=== PATIENT | female | born 1950 | race Caucasian/White ===

== ENCOUNTER 2022-08-02 18:41 | Inpatient (IN) | payer MEDICARE, MEDICAID ==
[~2022-08-02] VITALS: Ht 167.6 cm; Wt 86.8 kg
[2022-08-02] VITALS (44 sets, daily range): BP systolic 74–189; BP diastolic 45–118
[~2022-08-02 18:41] MED LIST: AMARYL1 MG PO; ATIVAN1 MG PO; DESYREL50 MG PO; HYDROCO/APAP TAB 10-; LORAZEPAM0.5 MG PO; LOSARTAN/HCT TAB 100; METFORMIN HCL500 M1 PO; MIRTAZAPINE15 MG PO; MIRTAZAPINE30 MG PO; MONTELUKAST SOD10 MG PO; MORPHINE SUL15 M2 PO; MORPHINE SUL30 M3 PO; OMEPRAZOLE; OXYCOD/APAP TAB 10-; OXYCOD/APAP1 TA4 PO; SERTRALINE HCL50 MG PO; SIMVASTATIN20 MG PO; TIZANIDINE HCL4 M1 PO; TIZANIDINE HCL4 MG PO
--- NOTE | 2022-08-02 18:41 | NUR ---
PT ARRIVE TO ER VIA EMS. PT PLACED IN RM 6. PROVIDER NOTIFIED.
[2022-08-02 19:10] LABS: BASO% 0.4 % (0-3); HEMATOCRIT 33.9 % (37.0-47.0); IMMATURE GRANULOCYTES 0.4 % (0.0-5.0); MEAN CELL VOLUME 90.6 fL CALC (80.0-100.0); MEAN CORPUSCULAR HGB 29.4 pG CALC (26.0-32.0); MEAN CORPUSCULAR HGB CONC 32.4 g/dL CAL (32.0-36.0); MONO% 14.8 % (2-13); NEUT# 1.16 thou/uL (2.00-7.15); NEUT% 46.4 % (42-76); RED BLOOD COUNT 3.74 mill/uL (4.20-5.60); RED CELL DISTRI WIDTH 12.2 % (11.5-15.5)
[2022-08-02 19:19] LABS: ALKALINE PHOSPHATASE 79 u/l (38-126); BILIRUBIN, TOTAL 0.2 mg/dL (0.02-1.3); BUN 23 mg/dL (8-23); BUN/CREATININE RATIO 29 (12-20 (CALC)); CARBON DIOXIDE 26 mmol/l (22-30); CHLORIDE 93 mmol/l (95-108); CREATININE 0.8 mg/dL (0.5-1.0); GFR FOR AFR.AMER. > 60 ML/MIN (>=60 (CALC)); GFR OTHER RACES > 60 ML/MIN (>=60 (CALC)); POTASSIUM 3.7 mmol/l (3.5-5.1)
[2022-08-02 19:30] LABS: ANION GAP 15 (6-22 (CALC)); SGOT/AST 33 u/l (9-36); SODIUM 130 mmol/l (137-146)
--- NOTE | 2022-08-02 21:15 | NUR ---
PT UP TO THE BEDSIDE COMMODE UNASSISTED AND SAMPLE SENT TO THE LAB
[2022-08-02 22:20] LABS: URINE BILIRUBIN - DIPSTICK NEGATIVE (NEGATIVE); URINE BLOOD DIPSTICK TRACE-LYSED (NEGATIVE); URINE COLOR YELLOW; URINE GLUCOSE - DIPSTICK NEGATIVE (NEGATIVE); URINE KETONE NEGATIVE (NEGATIVE); URINE LEUK ESTERASE NEGATIVE (NEGATIVE); URINE PROTEIN - DIPSTICK TRACE mg/dL (NEG-TRACE); URINE SPECIFIC GRAVITY 1.015; URINE UROBILINOGEN - DIPSTICK 0.2 E.U./dL (0.2)
[2022-08-02 22:24] LABS: URINE NITRITE - DIPSTICK NEGATIVE (Negative)
[2022-08-02] MEDS ORDERED: OXYCODONE20 M1 PO (22:30)
[2022-08-02] MEDS ORDERED: ISOSORB MONO20 MG PO (22:32)
--- NOTE | 2022-08-02 22:35 | NUR ---
REPORT TO RN. TRANSFERRED TO ROOM 271 BY STRETCHER.PT ALERT AND OX4
[2022-08-03] VITALS (7 sets, daily range): BP systolic 142–172; BP diastolic 45–97
--- NOTE | 2022-08-03 00:50 | NUR ---
RECEIVED REPORT FROM ED NURSE HORTENSIA, PATIENT TRANSPORTED VA BED, HOOKE ON O2 @ 2LPM, PATIENT O2 DEPENDENT AT HOME, GEN BODY ACHES. PATIENT STATED SEEING PAIN MANAGEMENT, EMS SITE NOTED ON LAC PATENT FLUSHES WELL, HOOKED ON NS @ 8O CC/HR, ON TELEMETRY, ADMISSION ASSESSMENT COMPLETED, PATIENT ORIENTED TO ROOM AND CALL LIGHT SYSTEM.
--- NOTE | 2022-08-03 04:15 | NUR ---
FLORESITA RESTING IN BED, WITH HEAD ELEVATED, REMAINS ON O2 @ 2LPM VIA NC, STILL ON DROPLET ISOLATION CALL LIGHT IN REACH.
[2022-08-03 06:02] LABS: ALBUMIN 3.6 g/dL (3.2-5.0); ALKALINE PHOSPHATASE 63 u/l (38-126); ANION GAP 10 (6-22 (CALC)); BUN 16 mg/dL (8-23); BUN/CREATININE RATIO 25 (12-20 (CALC)); CARBON DIOXIDE 25 mmol/l (22-30); CHLORIDE 102 mmol/l (95-108); CREATININE 0.6 mg/dL (0.5-1.0); GFR FOR AFR.AMER. > 60 ML/MIN (>=60 (CALC)); GFR OTHER RACES > 60 ML/MIN (>=60 (CALC)); SGOT/AST 29 u/l (9-36); SODIUM 132 mmol/l (137-146); TOTAL PROTEIN 6.5 g/dL (6.3-8.2)
[2022-08-03 06:08] LABS: HEMATOCRIT 31.4 % (37.0-47.0); HEMOGLOBIN 10.4 g/dl (12.0-16.0); LYMPH% 36.6 % (15-41); MEAN CORPUSCULAR HGB 29.8 pG CALC (26.0-32.0); MEAN CORPUSCULAR HGB CONC 33.1 g/dL CAL (32.0-36.0); MONO% 6.1 % (2-13); NEUT# 0.94 thou/uL (2.00-7.15); NEUT% 57.3 % (42-76); RED BLOOD COUNT 3.49 mill/uL (4.20-5.60)
--- NOTE | 2022-08-03 06:23 | NUR ---
RECEIVED CRITICAL WBC FROM LAB, CLIENT ENGAGEMENT MANAGER NOTIFIED.
--- NOTE | 2022-08-03 07:15 | NUR ---
SHIFT CHANGE REPORT, PT AWAKE ALERT AND ORIENTED SITTING UP IN BED, C/O GENERALISED AND REQUESTING PAIN MEDS WHICH WAS GIVEN, IVF 0.9 NS INFUSING @ 20ML/HR TO SITE IN [facility], TELE MONITOR IN PLACE, CALL TORRES IN REACH AND BED LOCKED IN LOWEST POSITION.
--- NOTE | 2022-08-03 11:36 | NUR ---
PT REPORTED SHE HAS NOT HAD A BM IN 1 WEEK, MEDICAL TEAM NOTIFIED AND WROTE ORDERS, MIRALAX GIVEN, WILL CONTINUE TO MONITOR.
[2022-08-03] MEDS ORDERED: METFORMIN HCL500 M1 PO (14:45)
[2022-08-03] MEDS ORDERED: AMARYL1 MG PO (14:50)
[2022-08-03] MEDS ORDERED: LEVOTHYROXIN25 MC1 PO (14:52)
[2022-08-03] MEDS ORDERED: REMERON15 MG PO (14:53)
[2022-08-03] MEDS ORDERED: ROPINIROLE1 MG PO (14:54)
[2022-08-03] MEDS ORDERED: ATORVASTATIN CA10 MG PO (14:55)
[2022-08-03] MEDS ORDERED: OMEPRAZOLE DR40 MG PO (14:56)
[2022-08-03] MEDS ORDERED: ISOSORBIDE MONO60 MG PO (14:59)
[2022-08-03] MEDS ORDERED: VITAMIN D-32000 UNI1 PO (15:02)
[2022-08-03] MEDS ORDERED: HYZAAR1 TAB PO (15:04)
[2022-08-03] MEDS ORDERED: NITROSTAT0.4 MG SL (15:11)
[2022-08-03] MEDS ORDERED: VITAMIN D1.25 MG PO (15:15)
--- NOTE | 2022-08-03 16:00 | NUR ---
SITTING UP IN BED ALL DAY, PLAYING CARD GAME ON PHONE AT THIS TIME, NO NEW COMPLAINS. PHARMACY CONSULTED TO CLARIFY MEDICATIONS PT HAD QUESTIONS ABOUT ORDERED MEDS, ORDERS HAVE BEEN CLARIFIED.
--- NOTE | 2022-08-03 19:45 | NUR ---
PATIENT SITTING UP IN BED. ALERT AND ABLE TO MAKE NEEDS KNOWN. COMPLAINED OF DINNER TRAY NOT COMING FAST ENOUGH. FRESH TRAY WAS PROVIDED BY STAFF. ASSESSMENT COMPLETE. DENIES PAIN. NO DISTRESS NOTED. O2 AT 2L VIA NC. PATIENT APPEARS TO TAKE OFF OXYGEN AT TIMES. LUNG SOUNDS WITH EXPIRATORY WHEEZES ON AUSCULTATION. BED REMAINS IN LOW POSITION. CALL TORRES IN REACH. REMAINS ON DROPLET ISOLATION FOR FLU AND REVERSE ISOLATION FOR LOW WBC.
[2022-08-04] VITALS (7 sets, daily range): BP systolic 115–170; BP diastolic 47–88
--- NOTE | 2022-08-04 00:39 | NUR ---
PATIENT REMAINS RESTING IN BED. NO COMPLAINTS VOICED AT THIS TIME.
--- NOTE | 2022-08-04 04:28 | NUR ---
PATIENT RESTING IN BED ON HER RIGHT SIDE. NO DISTRESS NOTED. NO COMPLAINTS OF PAIN. OXYGEN REMAINS VIA NC AT 2L. DENIES ANY PAIN AT THIS TIME. BED REMAINS IN LOW POSITION. CALL TORRES IN REACH.
[2022-08-04 06:05] LABS: BASO% 0.3 % (0-3); HEMATOCRIT 33.2 % (37.0-47.0); HEMOGLOBIN 10.9 g/dl (12.0-16.0); IMMATURE GRANULOCYTES 0.3 % (0.0-5.0); MEAN CELL VOLUME 90.7 fL CALC (80.0-100.0); MEAN CORPUSCULAR HGB 29.8 pG CALC (26.0-32.0); MEAN CORPUSCULAR HGB CONC 32.8 g/dL CAL (32.0-36.0); MONO% 11.1 % (2-13); NEUT# 1.73 thou/uL (2.00-7.15); RED BLOOD COUNT 3.66 mill/uL (4.20-5.60); RED CELL DISTRI WIDTH 12.2 % (11.5-15.5)
[2022-08-04 06:24] LABS: ALBUMIN 3.8 g/dL (3.2-5.0); ALKALINE PHOSPHATASE 64 u/l (38-126); ANION GAP 12 (6-22 (CALC)); BUN 14 mg/dL (8-23); BUN/CREATININE RATIO 26 (12-20 (CALC)); CARBON DIOXIDE 26 mmol/l (22-30); CHLORIDE 102 mmol/l (95-108); CREATININE 0.6 mg/dL (0.5-1.0); GFR FOR AFR.AMER. > 60 ML/MIN (>=60 (CALC)); GFR OTHER RACES > 60 ML/MIN (>=60 (CALC)); MAGNESIUM 1.8 mg/dL (1.6-2.3); POTASSIUM 4.2 mmol/l (3.5-5.1); SGOT/AST 45 u/l (9-36); SODIUM 136 mmol/l (137-146); TOTAL PROTEIN 6.6 g/dL (6.3-8.2)
[2022-08-04 06:30] LABS: LYMPH% 40.3 % (15-41)
--- NOTE | 2022-08-04 07:02 | NUR ---
SHIFT CHANGE REPORT, PT AWAKE, ALERT AND ORIENTED RESTING IN BED, C/O BEING COLD AT THIS TIME AND REQUEST TO HAVE DOOR OPEN TO RELIEVE COLD IN ROOM, IVF 0.9 NS INFUSING @ 10ML/HR TO SITE IN [facility], TELE MONITOR IN PLACE, CALL TORRES IN REACH AND BED LOCKED IN LOWEST POSITION.
--- NOTE | 2022-08-04 08:22 | NUR ---
NEB TX OFFERED. PT DECLINES. O2 SAT ON 2L IS 98%.
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
--- NOTE | 2022-08-04 12:02 | NUR ---
SITTING UP IN BED AT THIS TIME, C/O ANXIETY, LORAZAPAM GIVEN. STATES SHE DOES NOT WANT HER LUNCH MEAL IF SHE DOES NOT HAVE BOTH TEA AND COFFEE WITH IT, NURSE WILL INVESTIGATE AND ADDRESS CONCERNS.
--- NOTE | 2022-08-04 20:00 | NUR ---
RECEIVED REPORT FROM NURSE HOLT, PATIENT RESTING IN BED TALKING ON THE PHONE, HOOKED ON O2 @ 2LPM VIA NC, PATIENT ALERT ORIENTED C/O GEN BODY PAIN, HAS EMS SITE ON LAC NS @ 10CC/HR INFUSING WELL, HOOKED ON TELEMETRY, PATIENT NOTED WHEEZING ON BILAT LUNG LE, ACTIVE BOWEL SOUNDS LBM 4/6, CALL LIGHT IN REACH.
--- NOTE | 2022-08-04 22:30 | NUR ---
ems site removed new iv inserted g 22 on left hand patent flushes well.
[2022-08-05] VITALS (7 sets, daily range): BP systolic 93–128; BP diastolic 56–72
--- NOTE | 2022-08-05 | NUR ---
PATIENT AWAKE, C/O GEN BODY PAIN WILL MEDICATE, PATIENT REMAINS ON 02 2 2LPM,BREATHING SHALLOW, STILL WITH EXETIONAL DYSPNEA, CALL LIGHT IN REACH.
--- NOTE | 2022-08-05 03:45 | NUR ---
PATIENT RESTING IN BED, BREATHING SHALLOW, REMAINS ON 2LPMMVIA NC, CALL LIGHT IN REACH.
[2022-08-05 05:46] LABS: BASO% 0.3 % (0-3); IMMATURE GRANULOCYTES 0.3 % (0.0-5.0); LYMPH% 22.2 % (15-41); MEAN CELL VOLUME 91.4 fL CALC (80.0-100.0); MEAN CORPUSCULAR HGB 29.6 pG CALC (26.0-32.0); MEAN CORPUSCULAR HGB CONC 32.4 g/dL CAL (32.0-36.0); NEUT# 4.91 thou/uL (2.00-7.15); NEUT% 70.2 % (42-76); RED BLOOD COUNT 3.72 mill/uL (4.20-5.60); RED CELL DISTRI WIDTH 12.4 % (11.5-15.5)
[2022-08-05 06:12] LABS: ALBUMIN 3.5 g/dL (3.2-5.0); ALKALINE PHOSPHATASE 69 u/l (38-126); ANION GAP 13 (6-22 (CALC)); BUN 20 mg/dL (8-23); BUN/CREATININE RATIO 25 (12-20 (CALC)); CARBON DIOXIDE 22 mmol/l (22-30); CHLORIDE 102 mmol/l (95-108); CREATININE 0.8 mg/dL (0.5-1.0); GFR FOR AFR.AMER. > 60 ML/MIN (>=60 (CALC)); GFR OTHER RACES > 60 ML/MIN (>=60 (CALC)); MAGNESIUM 1.6 mg/dL (1.6-2.3); POTASSIUM 3.9 mmol/l (3.5-5.1); SODIUM 132 mmol/l (137-146); TOTAL PROTEIN 6.1 g/dL (6.3-8.2)
[2022-08-05 06:14] LABS: BILIRUBIN, TOTAL 0.3 mg/dL (0.02-1.3); SGOT/AST 99 u/l (9-36)
--- NOTE | 2022-08-05 07:25 | NUR ---
RECEIVED REPORT FROM PM RN. PT RESTING IN BED, VSS, NO NEEDS AT THIS TIME. ALL SAFETY MEASURES IN PLACE.
--- NOTE | 2022-08-05 20:00 | NUR ---
RECEIVED REPORT FROM DAY SHIFT NURSE. PT SITTING ON BED HIGH FOWLERS; A &O X3. ASSESSMENT COMPLETED. O2 @ 2L VIA NASAL CANNULA IN PLACE. TELEMETRY IN PLACE. IV SITE FLUSHED: #22G LEFT HAND, HEALTHY AND PATENT. SAFETY PRECAUTIONS IN LACE WITH CALL LIGHT IN REACH.
--- NOTE | 2022-08-05 22:30 | NUR ---
PT C/O GENERALIZED PAIN, LEVEL 10/10,\; ADMINISTERED PAIN MED PER EMAR. SAFETY PRECAUTIONS IN PLACE WITH CALL LIGHT IN REACH.
[2022-08-06] VITALS (8 sets, daily range): BP systolic 85–129; BP diastolic 39–74
--- NOTE | 2022-08-06 | NUR ---
PT RESTING ON BED WITH EYES CLOSED; SUPINE POSITION. O2 @ 2L VIA NASAL CANNULA IN PLACE. NO DISTRESS OR PAIN NOTED. SAFETY PRECAUTIONS IN PLACE WITH CALL LIGHT IN REACH.
--- NOTE | 2022-08-06 04:30 | NUR ---
RECEIVED CALL FROM ER; PT HR IS IN THE 140'S. DR KLINE NOTIFIED OF SAME; ORDERED LOPRESSOR IV, WILL ADMINISTER SOON PHARMACY PROFILES MED. PT WAS RESTING ON BED, HIGH FOWLERS POSITION. IV SITE INFUSING FLUIDS PER ORDER. O2 @ 2L VIA NASAL CANNULA IN PLACE. SAFETY PRECAUTIONS IN PLACE WITH CALL LIGHT IN REACH.
[2022-08-06 05:47] LABS: ALBUMIN 3.8 g/dL (3.2-5.0); ALKALINE PHOSPHATASE 65 u/l (38-126); ANION GAP 10 (6-22 (CALC)); BILIRUBIN, TOTAL 0.4 mg/dL (0.02-1.3); BUN 22 mg/dL (8-23); BUN/CREATININE RATIO 29 (12-20 (CALC)); CARBON DIOXIDE 23 mmol/l (22-30); CHLORIDE 101 mmol/l (95-108); CREATININE 0.8 mg/dL (0.5-1.0); GFR FOR AFR.AMER. > 60 ML/MIN (>=60 (CALC)); GFR OTHER RACES > 60 ML/MIN (>=60 (CALC)); MAGNESIUM 1.7 mg/dL (1.6-2.3); POTASSIUM 3.9 mmol/l (3.5-5.1); SGOT/AST 104 u/l (9-36); SODIUM 130 mmol/l (137-146); TOTAL PROTEIN 6.7 g/dL (6.3-8.2)
[2022-08-06 06:02] LABS: HEMATOCRIT 34.5 % (37.0-47.0); HEMOGLOBIN 11.3 g/dl (12.0-16.0); MEAN CORPUSCULAR HGB 29.8 pG CALC (26.0-32.0); MEAN CORPUSCULAR HGB CONC 32.8 g/dL CAL (32.0-36.0); RED BLOOD COUNT 3.79 mill/uL (4.20-5.60); RED CELL DISTRI WIDTH 12.5 % (11.5-15.5)
--- NOTE | 2022-08-06 08:15 | NUR ---
0740 - PT PRESENTS SYMPTOMS OF SEPSIS. BP 94/39, HR 138, WBC 14.2 PHYSICIAN NOTIFIED, ORDERED 500 ML BOLUS, BLOOD CULTURES, URINE CULTURES, LACTIC ACID. 0807 - TELEMETRY REPORTS PATIENT IN AFIB. PHYSICIAN ORDERED 150 ML AMIODORONE BOLUS. EKG ORDERED.
--- NOTE | 2022-08-06 08:53 | NUR ---
0850 - PT DID NOT CONVERT TO NSR WITH AMIO BOLUS. INFORMED. PT REMAINS AFIB HR 136
--- NOTE | 2022-08-06 11:16 | NUR ---
TERRY FROM ER CALLED AEROMED SPOKE TO DISPATCH STATED THEY WILL TOUCHDOWN WITH ETA OF 20 MINUTES.
--- NOTE | 2022-08-06 11:47 | NUR ---
0940 - CALLED RAPID RESPONSE FOR PT DUE TO HEART RATE/RHYTHM AFIB WITH RVR AND TROPONIN OF 12. ADVISED AIR TRANSFER TO [place]. AMIO 150 BOLUS GIVEN AND CARDIZEM DRIP STARTED AT 10. PT HR MAITAINED IN AFIB WITH RVR. SECOND TROPONIN CAME BACK 11.6. [facility] ADVISED PT WOULD BE FLOWN IN AND GO STRAIGHT TO PATIENT SAFETY OFFICER. PT EDUCATED ON PROCESS AND COMING TRANSFER, AGREED TO SAME. FAMILY [facility]ERS CONTACTED PER PT WISHES. 1137 - PATIENT LOADED ONTO FLIGHT STRETCHER. REPORT GIVEN AND PATIENT SAFETY OFFICER AT [facility] CALLED. END OF MY CARE.
--- NOTE | 2022-08-06 12:04 | NUR ---
PRELIMINAR BC SHOWS GRAM (+) COCCI IN 1/[address] RESULTS REPORT[address] KLINE. NO NEW ORDERS PATIENT IS TO BE TRANSFERRED FOR HIGHER LEVEL OF CARE.
--- NOTE | 2022-08-07 12:36 | NUR ---
BLOOD CULTURE GROWING STAPH HOMINIS. C&S RESULTS FAXED TO [facility] NURSE JAQUI Tolbert @ [phone].
== END 2022-08-06 11:46 | disposition short-term general hospital (02) | DRG 193 ==
LOC: ED 18:41 → ED-I 20:49 → ED 21:03 → MS2 21:04
PROVIDERS: Family Medicine; Internal Medicine; Nurse Practitioner Family; ADMIT Internal Medicine; ATTEND Internal Medicine
DX: J10.1 Influenza due to other identified influenza virus with other respiratory manifestations (principal); I21.4 Non-ST elevation (NSTEMI) myocardial infarction; R57.0 Cardiogenic shock; J96.01 Acute respiratory failure with hypoxia; J44.1 Chronic obstructive pulmonary disease with (acute) exacerbation; I48.91 Unspecified atrial fibrillation; E11.9 Type 2 diabetes mellitus without complications; I25.10 Atherosclerotic heart disease of native coronary artery without angina pectoris; I10 Essential (primary) hypertension; M19.90 Unspecified osteoarthritis, unspecified site; Z79.84 Long term (current) use of oral hypoglycemic drugs; Z79.891 Long term (current) use of opiate analgesic; Z99.81 Dependence on supplemental oxygen
CPT/HCPCS: J0282; J1160; J1650

== ENCOUNTER 2022-11-13 13:03 | Emergency (ER) | payer MEDICARE, MEDICAID ==
[~2022-11-13] VITALS: Ht 167.6 cm; Wt 108.9 kg
[2022-11-13] VITALS (9 sets, daily range): BP systolic 135–171; BP diastolic 50–68
[~2022-11-13 13:03] MED LIST changes: +ATORVASTATIN CA10 MG PO; +HYZAAR1 TAB PO; +ISOSORB MONO20 MG PO; +ISOSORBIDE MONO60 MG PO; +LEVOTHYROXIN25 MC1 PO; +NITROSTAT0.4 MG SL; +OMEPRAZOLE DR40 MG PO; +OXYCODONE20 M1 PO; +REMERON15 MG PO; +ROPINIROLE1 MG PO; +VITAMIN D-32000 UNI1 PO; +VITAMIN D1.25 MG PO
[2022-11-13 14:43] LABS: URINE BILIRUBIN - DIPSTICK NEGATIVE (NEGATIVE); URINE BLOOD DIPSTICK NEGATIVE (NEGATIVE); URINE COLOR YELLOW; URINE GLUCOSE - DIPSTICK >=1000 mg/dL (NEGATIVE); URINE KETONE NEGATIVE (NEGATIVE); URINE LEUK ESTERASE NEGATIVE (NEGATIVE); URINE PH 6.5 (4.5-8.0); URINE PROTEIN - DIPSTICK NEGATIVE (NEG-TRACE); URINE SPECIFIC GRAVITY 1.015; URINE UROBILINOGEN - DIPSTICK 0.2 E.U./dL (0.2)
[2022-11-13 14:53] LABS: URINE NITRITE - DIPSTICK NEGATIVE (Negative)
[2022-11-13 17:23] LABS: BASO% 0.4 % (0-3); EOS% 0.9 % (0-8); HEMATOCRIT 39.2 % (37.0-47.0); HEMOGLOBIN 12.3 g/dl (12.0-16.0); IMMATURE GRANULOCYTES 0.2 % (0.0-5.0); LYMPH% 29.6 % (15-41); MEAN CELL VOLUME 91.6 fL CALC (80.0-100.0); MEAN CORPUSCULAR HGB 28.7 pG CALC (26.0-32.0); MEAN CORPUSCULAR HGB CONC 31.4 g/dL CAL (32.0-36.0); MONO% 6.1 % (2-13); NEUT# 6.65 thou/uL (2.00-7.15); NEUT% 62.8 % (42-76); RED BLOOD COUNT 4.28 mill/uL (4.20-5.60); RED CELL DISTRI WIDTH 12.1 % (11.5-15.5)
[2022-11-13 17:42] LABS: ALBUMIN 4.4 g/dL (3.2-5.0); ALKALINE PHOSPHATASE 119 u/l (38-126); ANION GAP 10 (6-22 (CALC)); BILIRUBIN, TOTAL 0.5 mg/dL (0.02-1.3); BUN 14 mg/dL (8-23); BUN/CREATININE RATIO 20 (12-20 (CALC)); CARBON DIOXIDE 29 mmol/l (22-30); CHLORIDE 99 mmol/l (95-108); CREATININE 0.7 mg/dL (0.5-1.0); GFR FOR AFR.AMER. > 60 ML/MIN (>=60 (CALC)); GFR OTHER RACES > 60 ML/MIN (>=60 (CALC)); POTASSIUM 4.1 mmol/l (3.5-5.1); SGOT/AST 24 u/l (9-36); SODIUM 134 mmol/l (137-146)
== END 2022-11-13 21:08 | disposition left against medical advice (07) ==
LOC: ED 13:03
PROVIDERS: Family Medicine
DX: M54.9 Dorsalgia, unspecified (principal); I10 Essential (primary) hypertension; E11.9 Type 2 diabetes mellitus without complications; F17.210 Nicotine dependence, cigarettes, uncomplicated; Z87.440 Personal history of urinary (tract) infections; Z79.84 Long term (current) use of oral hypoglycemic drugs; Z53.29 Procedure and treatment not carried out because of patient's decision for other reasons